=== PATIENT | female | born 1995 | race Hispanic/Latino ===

== ENCOUNTER 2021-02-27 04:59 | Observation (INO) | payer OTHER ==
[~2021-02-27] VITALS: Ht 148 cm; Wt 53.5 kg
[2021-02-27] MEDS ORDERED: LACTATED RINGERS 1000ML IV PRN (05:15)
[2021-02-27 05:43] LABS: APPEARANCE,URINE Clear (CLEAR); BILIRUBIN,URINE Negative (NEGATIVE); COLOR,URINE Yellow (YELLOW); GLUCOSE, URINE (UA) Negative (NEGATIVE); KETONES,URINE Negative (NEGATIVE); LEUKOCYTE ESTERASE ,URINE Large (NEGATIVE); NITRATE,URINE Negative (NEGATIVE); OCCULT BLOOD,URINE Large (NEGATIVE); PH,URINE 6.5 (5.0-8.0); PROTEIN,URINE Negative (NEGATIVE); UROBILINOGEN,URINE 0.2 mg/dL (0.2-1.0)
[2021-02-27] MEDS ORDERED: IRON1CAP31 PO (06:04)
[2021-02-27 06:14] LABS: AMPHET/METH SCREEN,URINE NEGATIVE (NEGATIVE); BACTERIA,URINE Moderate /HPF (None Seen); BARBITURATE SCREEN, URINE NEGATIVE (NEGATIVE); BENZODIAZEPINES SCREEN,URINE NEGATIVE (NEGATIVE); CANNABINOID SCREEN,URINE NEGATIVE (NEGATIVE); COCAINE SCREEN,URINE NEGATIVE (NEGATIVE); OPIATE SCREEN,URINE NEGATIVE (NEGATIVE); PHENCYCLIDINE SCREEN,URINE NEGATIVE (NEGATIVE); YEAST,URINE BUDDING Rare /HPF (None Seen)
[2021-02-27] MEDS ORDERED: LACTATED RINGERS 1000ML 1,000 ML IV SCH (06:30)
== END 2021-02-27 09:00 | disposition home or self-care (01) ==
LOC: EDH 04:59 → LDH 05:25
PROVIDERS: ADMIT Internal Medicine; ATTEND Internal Medicine
DX: O26.893 Other specified pregnancy related conditions, third trimester (principal); R10.2 Pelvic and perineal pain; O46.93 Antepartum hemorrhage, unspecified, third trimester; Z3A.39 39 weeks gestation of pregnancy
CPT/HCPCS: 59025; 76805; 76819; 80305; 81001; 87088; 96360; 96361; 99284; G0378 ×4; J7120